=== PATIENT | male | born 1980 | race Caucasian/White ===

== ENCOUNTER 2020-03-16 10:50 | Inpatient (IN) | payer MEDICAID, OTHER ==
[2020-03-16] MEDS ORDERED: ACETAMINOPHEN TAB 500 MG TAB PO STA (11:25)
[2020-03-16] MEDS ORDERED: SODIUM CHLORIDE 0.9% 1,000 ML IV STA (11:25)
--- NOTE | 2020-03-16 11:28 | ED ---
General Adult HPI - General Chief complaint: Psychiatric Symptoms Stated complaint: headache 10 days Time Seen by Provider: 03/16/20 11:13 Source: patient Mode of arrival: ambulatory Limitations: no limitations - History of Present Illness Initial comments: Patient is a 39-year-old male presenting to the emergency Department with complaints of a headache that has been going on for the past 10 days. Patient states he is also having suicidal thoughts without a plan. He denies any homicidal thoughts. Patient states he does have history of depression but has never taken any medications for it. He has attempted suicide in the past, approximately 10-12 years ago. He does not currently have a plan. Patient states he does not normally have headaches and this headache will not go away. He has tried ibuprofen without improvement. He denies any fevers but he did arrive today febrile 100.6. He states he is a full-time job. He denies any chest pain, no shortness of breath. He denies any abdominal pain no nausea or vomiting no diarrhea. Patient did not take any Tylenol or Motrin today. He has no other pertinent past medical history, no abdominal surgeries. No neck pain, no trauma to the head. He denies being on blood thinners. He has no further complaints at this time. Upon arrival to the ER, patient is febrile 100.6, tachycardia at 116, rest of vitals are normal. - Related Data Home Medications Medication Instructions Recorded Confirmed No Known Home Medications 03/16/20 03/16/20 Allergies Allergy/AdvReac Type Severity Reaction Status Date / Time No Known Allergies Allergy Verified 03/16/20 16:53 Review of Systems ROS Statement: Those systems with pertinent positive or pertinent negative responses have been documented in the HPI. ROS Other: All systems not noted in ROS Statement are negative. Past Medical History Past Medical History: No Reported History Past Surgical History: No Surgical Hx Reported Past Psychological History: No Psychological Hx Reported Smoking Status: Current some day smoker Past Alcohol Use History: Occasional Past Drug Use History: None Reported General Exam - General Exam Comments Initial Comments: GENERAL: Patient appears disheveled , patient is nontoxic and in mild distress. HEAD: Atraumatic, normocephalic. EYES: Pupils equal round and reactive to light, extraocular movements intact, sclera anicteric, conjunctiva are normal. Eyelids were unremarkable. ENT: TMs normal, nares patent, oropharynx clear without exudates. Moist mucous membranes. NECK: Normal range of motion, supple without lymphadenopathy or JVD. Negative nuchal rigidity, negative Kernig's, negative Brudzinski's, negative jolt test. LUNGS: Unlabored respirations. Breath sounds clear to auscultation bilaterally and equal. No wheezes rales or rhonchi. HEART: Tachycardia rate and rhythm without murmurs, rubs or gallops. ABDOMEN: Soft, nontender, normoactive bowel sounds. No guarding, no rebound. No masses appreciated. : Deferred MUSCULOSKELETAL: Normal extremities with adequate strength and normal range of motion, no pitting or edema. No clubbing or cyanosis. NEUROLOGICAL: Patient is alert and oriented x 3. Motor and sensory are also intact. Cranial nerves II through XII grossly intact. Symmetrical smile. Normal speech, normal gait. PSYCH: Patient seems anxious, depressed. SKIN: Warm, Dry, normal turgor, no rashes or lesions noted. Limitations: no limitations Course Vital Signs 03/16/20 03/16/20 11:07 13:19 Temperature 100.6 F H 99.9 F H Pulse Rate 116 H 101 H Respiratory 22 16 Rate Blood Pressure 107/63 116/73 O2 Sat by Pulse 100 99 Oximetry - Reevaluation(s) Reevaluation #1: 03/16/20 13:46 Patient's labs are reviewed, normal white count, mildly elevated liver enzymes, Urine shows no evidence of infection, urine tox is positive for benzos, mariju stephani, no alcohol. Flu and Covid are all negative. CT of the brain, chest x-ray show no acute process. Patient was given fluids, Tylenol and Toradol for his headache. He's been resting currently. Patient was cleared for EPS evaluation. Awaiting their evaluation. EKG Findings - EKG Comments: EKG Findings:: Sinus tach, nonspecific T-wave abnormalities, no signs of acute process. Ventricular rate 101, UT interval 160, QT 320. Medical Decision Making - Medical Decision Making Patient is a 39-year-old male presenting for a headache for the past 10 days and is also suicidal. Patient denies having a plan that at this time. He did arrive febrile to 100.6, pulse is 116, rest of vitals were normal. His exam revealed no acute process, no acute neuro findings, no findings of acute meningitis. Labs show a normal white count, lactic acid was normal at 1.3, liver enzymes are slightly elevated, CRP is up at 29. Urine shows no evidence of infection, urine tox is positive for benzos and marijuana, serum alcohol is negative, flu, RSV and cold are all negative. EKG showed no acute process, chest x-ray and a brain CT also showed no acute process. Patient was given flu ids and Tylenol and pain control for his headache, he does report mild improvement in his symptoms. Patient was cleared for evaluation by EPS. Patient will be admitted to the psych unit. We will continue with Tylenol as needed for fever control. Case discussed with Dr. Pires. - Lab Data Result diagrams: 03/16/20 11:36 03/16/20 11:36 Lab Results 03/16/20 03/16/20 03/16/20 Range/Units 11:36 11:36 11:36 WBC 7.9 (3.8-10.6) k/uL RBC 4.21 L (4.30-5.90) m/uL Hgb 14.5 (13.0-17.5) gm/dL Hct 40.4 (39.0-53.0) % MCV 95.8 (80.0-100.0) fL MCH 34.4 (25.0-35.0) pg MCHC 35.9 (31.0-37.0) g/dL RDW 12.6 (11.5-15.5) % Plt Count 257 (150-450) k/uL MPV 7.2 Neutrophils % 77 % Lymphocytes % 15 % Monocytes % 5 % Eosinophils % 0 % Basophils % 1 % Neutrophils # 6.1 (1.3-7.7) k/uL Lymphocytes # 1.2 (1.0-4.8) k/uL Monocytes # 0.4 (0-1.0) k/uL Eosinophils # 0.0 (0-0.7) k/uL Basophils # 0.1 (0-0.2) k/uL PT 9.8 (9.0-12.0) sec INR 0.9 (<1.2) APTT 25.5 (22.0-30.0) sec Sodium 130 L (137-145) mmol/L Potassium 4.1 (3.5-5.1) mmol/L Chloride 97 L (98-107) mmol/L Carbon Dioxide 27 (22-30) mmol/L Anion Gap 6 mmol/L BUN 10 (9-20) mg/dL Creatinine 0.81 (0.66-1.25) mg/dL Est GFR (CKD-EPI)AfAm >90 (>60 ml/min/1.73 sqM) Est GFR (CKD-EPI)NonAf >90 (>60 ml/min/1.73 sqM) Glucose 108 H (74-99) mg/dL Plasma Lactic Acid Brennan (0.7-2.0) mmol/L Calcium 10.3 H (8.4-10.2) mg/dL Total Bilirubin 0.6 (0.2-1.3) mg/dL AST 137 H (17-59) U/L ALT 181 H (4-49) U/L Alkaline Phosphatase 178 H (38-126) U/L C-Reactive Protein 29.0 H (<10.0) mg/L Total Protein 6.8 (6.3-8.2) g/dL Albumin 3.9 (3.5-5.0) g/dL Urine Color Urine Appearance (Clear) Urine pH (5.0-8.0) Ur Specific [place] (1.001-1.035) Urine Protein (Negative) Urine Glucose (UA) (Negative) Urine Ketones (Negative) Urine Blood (Negative) Urine Nitrite (Negative) Urine Bilirubin (Negative) Urine Urobilinogen (<2.0) mg/dL Ur Leukocyte Esterase (Negative) Urine RBC (0-5) /hpf Urine WBC (0-5) /hpf Urine Mucus (None) /hpf Urine Opiates Screen (NotDetected) Ur Oxycodone Screen (NotDetected) Urine Methadone Screen (NotDetected) Ur Propoxyphene Screen (NotDetected) Ur Barbiturates Screen (NotDetected) U Tricyclic Antidepress (NotDetected) Ur Phencyclidine Scrn (NotDetected) Ur Amphetamines Screen (NotDetected) U Methamphetamines Scrn (NotDetected) U Benzodiazepines Scrn (NotDetected) Urine Cocaine Screen (NotDetected) U Marijuana (THC) Screen (NotDetected) Serum Alcohol <10 mg/dL Influenza Type A (PCR) (Not Detectd) Influenza Type B (PCR) (Not Detectd) RSV (PCR) (Not Detectd) SARS-CoV-2 (PCR) (Not Detectd) 03/16/20 03/16/20 03/16/20 Range/Units 11:36 11:36 11:36 WBC (3.8-10.6) k/uL RBC (4.30-5.90) m/uL Hgb (13.0-17.5) gm/dL Hct (39.0-53.0) % MCV (80.0-100.0) fL MCH (25.0-35.0) pg MCHC (31.0-37.0) g/dL RDW (11.5-15.5) % Plt Count (150-450) k/uL MPV Neutrophils % % Lymphocytes % % Monocytes % % Eosinophils % % Basophils % % Neutrophils # (1.3-7.7) k/uL Lymphocytes # (1.0-4.8) k/uL Monocytes # (0-1.0) k/uL Eosinophils # (0-0.7) k/uL Basophils # (0-0.2) k/uL PT (9.0-12.0) sec INR (<1.2) APTT (22.0-30.0) sec Sodium (137-145) mmol/L Potassium (3.5-5.1) mmol/L Chloride (98-107) mmol/L Carbon Dioxide (22-30) mmol/L Anion Gap mmol/L BUN (9-20) mg/dL Creatinine (0.66-1.25) mg/dL Est GFR (CKD-EPI)AfAm (>60 ml/min/1.73 sqM) Est GFR (CKD-EPI)NonAf (>60 ml/min/1.73 sqM) Glucose (74-99) mg/dL Plasma Lactic Acid Brennan 1.3 (0.7-2.0) mmol/L Calcium (8.4-10.2) mg/dL Total Bilirubin (0.2-1.3) mg/dL AST (17-59) U/L ALT (4-49) U/L Alkaline Phosphatase (38-126) U/L C-Reactive Protein (<10.0) mg/L Total Protein (6.3-8.2) g/dL Albumin (3.5-5.0) g/dL Urine Color Yellow Urine Appearance Clear (Clear) Urine pH 5.5 (5.0-8.0) Ur Specific [place] 1.019 (1.001-1.035) Urine Protein Trace H (Negative) Urine Glucose (UA) Negative (Negative) Urine Ketones Negative (Negative) Urine Blood Trace H (Negative) Urine Nitrite Negative (Negative) Urine Bilirubin Negative (Negative) Urine Urobilinogen <2.0 (<2.0) mg/dL Ur Leukocyte Esterase Negative (Negative) Urine RBC 2 (0-5) /hpf Urine WBC 1 (0-5) /hpf Urine Mucus Few H (None) /hpf Urine Opiates Screen Not Detected (NotDetected) Ur Oxycodone Screen Not Detected (NotDetected) Urine Methadone Screen Not Detected (NotDetected) Ur Propoxyphene Screen Not Detected (NotDetected) Ur Barbiturates Screen Not Detected (NotDetected) U Tricyclic Antidepress Not Detected (NotDetected) Ur Phencyclidine Scrn Not Detected (NotDetected) Ur Amphetamines Screen Not Detected (NotDetected) U Methamphetamines Scrn Not Detected (NotDetected) U Benzodiazepines Scrn Detected H (NotDetected) Urine Cocaine Screen Not Detected (NotDetected) U Marijuana (THC) Screen Detected H (NotDetected) Serum Alcohol mg/dL Influenza Type A (PCR) Not Detected (Not Detectd) Influenza Type B (PCR) Not Detected (Not Detectd) RSV (PCR) Not Detected (Not Detectd) SARS-CoV-2 (PCR) Not Detected (Not Detectd) Disposition Clinical Impression: Depression, Suicidal ideation, Headache, Viral illness Disposition: TRANSFER TO PSYCH HOSP/UNIT Condition: Stable Decision Date: 03/16/20 Decision Time: 15:46
[2020-03-16 12:12] LABS: Basophils # (A) 0.1 k/uL (0-0.2); Basophils % (A) 1 %; Eosinophils % (A) 0 %; HCT 40.4 % (39.0-53.0); HGB 14.5 gm/dL (13.0-17.5); Lymphocytes # (A) 1.2 k/uL (1.0-4.8); Lymphocytes % (A) 15 %; MCH 34.4 pg (25.0-35.0); MCHC 35.9 g/dL (31.0-37.0); MCV 95.8 fL (80.0-100.0); Mean Platelet Volume 7.2; Monocytes # (A) 0.4 k/uL (0-1.0); Monocytes % (A) 5 %; Neutrophils # (A) 6.1 k/uL (1.3-7.7); Neutrophils % (A) 77 %; Platelet Count 257 k/uL (150-450); RBC 4.21 m/uL (4.30-5.90); RDW 12.6 % (11.5-15.5); WBC 7.9 k/uL (3.8-10.6)
--- NOTE | 2020-03-16 12:12 | CT ---
EXAMINATION TYPE: CT brain wo con DATE OF EXAM: 03/16/2020 COMPARISON: None HISTORY: Headache for 10 days with fever today CT DLP: 1127.[address] of the brain was performed. The ventricles, basal cisterns and sulci overlying the cerebral convexities demonstrate a normal appe arance. There is no evidence for intracranial hemorrhage or sulcal effacement. No mass effects are seen. Osseous calvarium is intact. If symptoms persist consider MRI as clinically warranted. IMPRESSION: 1. No acute intracranial process is seen at this time.
[2020-03-16 12:21] LABS: Appearance,Urine Clear (Clear); Bilirubin,Urine Negative (Negative); Blood,Urine Trace (Negative); Color,Urine Yellow; Glucose,Urine (UA) Negative (Negative); Ketones,Urine Negative (Negative); Leukocyte Esterase,Urine Negative (Negative); Mucus,Urine Few /hpf; Nitrite,Urine Negative (Negative); PH, Urine 5.5 (5.0-8.0); Protein,Urine Trace (Negative); RBC,Urine 2 /hpf (0-5); Specific Gravity,Urine 1.019 (1.001-1.035); Urobilinogen,Urine <2.0 mg/dL (<2.0); WBC,Urine 1 /hpf (0-5)
[2020-03-16 12:27] LABS: ALT 181 U/L (4-49); AST 137 U/L (17-59); African American GFR (CKD) >90 (>60 ml/min/1.73 sqM); Albumin 3.9 g/dL (3.5-5.0); Alcohol <10 mg/dL; Alkaline Phosphatase 178 U/L (38-126); Anion Gap 6 mmol/L; Blood Urea Nitrogen 10 mg/dL (9-20); Calcium 10.3 mg/dL (8.4-10.2); Carbon Dioxide 27 mmol/L (22-30); Chloride 97 mmol/L (98-107); Glucose 108 mg/dL (74-99); Non-African American GFR(CKD) >90 (>60 ml/min/1.73 sqM); Potassium 4.1 mmol/L (3.5-5.1); Sodium 130 mmol/L (137-145); Total Bilirubin 0.6 mg/dL (0.2-1.3); Total Protein 6.8 g/dL (6.3-8.2)
--- NOTE | 2020-03-16 12:27 | XR ---
EXAMINATION TYPE: XR chest 2V DATE OF EXAM: 03/16/2020 COMPARISON: 01/07/2012 HISTORY: Chest pain TECHNIQUE: Frontal and lateral views of the chest are obtained. FINDINGS: There is no focal air space opacity. No evidence for pneumothorax. No pleural effusion. The cardiac silhouette size is within normal limits. The osseous structures are grossly intact. IMPRESSION: 1. No acute cardiopulmonary process.
[2020-03-16 12:31] LABS: Amphetamine Screen,Urine Not Detected (NotDetected); Barbiturate Screen,Urine Not Detected (NotDetected); Benzodiazepines Screen,Urine Detected (NotDetected); Cocaine Screen,Urine Not Detected (NotDetected); Methadone Screen, Urine Not Detected (NotDetected); Oxycodone Screen, Urine Not Detected (NotDetected); Phencyclidine Screen,Urine Not Detected (NotDetected); Tricyclic Antidepressant,Urine Not Detected (NotDetected); Urn Cannabinoid Scrn Detected (NotDetected)
[2020-03-16 12:43] LABS: INR 0.9 (<1.2); Prothrombin Time 9.8 sec (9.0-12.0)
[2020-03-16 12:44] LABS: Partial Thromboplastin Time 25.5 sec (22.0-30.0)
[2020-03-16 12:51] LABS: Opiate Screen,Urine Not Detected (NotDetected)
[2020-03-16] MEDS ORDERED: KETOROLAC 15 MG/ML 1 ML VIAL IVP STA (12:57)
[2020-03-16] MEDS ORDERED: METOCLOPRAMIDE 5 MG/ML 2 ML VIAL IVP STA (12:58)
[2020-03-16] MEDS ORDERED: SODIUM CHLORIDE 0.9% 500 ML 500 ML IV STA (15:18)
[2020-03-16] MEDS ORDERED: MAGNESIUM HYDROXIDE 2,400 MG/10 ML CUP PO PRN (16:11)
[2020-03-16] MEDS ORDERED: MAG HYDROX/AL HYDROX/SIMETH 30 ML CUP PO PRN (16:11)
[2020-03-16] MEDS ORDERED: haloperidoL 5 MG TAB PO PRN (16:17)
[2020-03-16] MEDS ORDERED: HALOPERIDOL LACTATE 5 MG/ML 1 ML VIAL IM PRN (16:17)
[2020-03-16] MEDS: NICOTINE 14MG/24HR PATCH TRANSDERM SCH (17:57)
[2020-03-16] MEDS ORDERED: INFLUENZA VACCINE (6 MOS+) 60 MCG/0.5 ML SYRINGE IM ONE (18:45)
[2020-03-16] MEDS ORDERED: PNEUMOCOCCAL VACC-PNEUMOVAX 23 25 MCG/0.5 ML VIAL IM ONE (18:46)
[2020-03-17] MEDS ORDERED: DEXAMETHASONE SOD PHOSPHATE 10 MG/ML 1 ML VIAL IM STA (00:01)
[2020-03-17] MEDS ORDERED: SUMAtriptan succinate 6 MG/0.5 ML VIAL SQ STA (00:01)
[2020-03-17] MEDS ORDERED: METOCLOPRAMIDE 5 MG/ML 2 ML VIAL IVP STA (00:01)
[2020-03-17] MEDS ORDERED: NAPROXEN 250 MG TAB PO STA (00:01)
[2020-03-17] MEDS ORDERED: diphenhydrAMINE 50 MG/ML 1 ML VIAL IVP PRN (00:01)
[2020-03-17] MEDS ORDERED: diphenhydrAMINE 50 MG/ML 1 ML VIAL IM PRN (00:30)
[2020-03-17] MEDS ORDERED: METOCLOPRAMIDE 5 MG/ML 2 ML VIAL IM PRN (00:30)
--- NOTE | 2020-03-17 00:42 | P.MDCNMH ---
History of Present Illness H&P Date: 03/17/20 Chief Complaint: medical evalaution , headache 39 year old male with no significant past medical history patient comes in to the ED, due to severe headache, not associated with focal neuro deficits, but claims to have nausea and photophobia, he claims that it has been going on for past 10 days, tylenol and motrin are not helping, in the ED he had CT done and was unremarkable for any acute pathology . in the ED he hwas given toradol with brief relief. he denies any history of similar episodes of headache he also reported depression and suicidal ideation , he had suicidal attempt 10 years ago, but otherwise denies being on any antidepressant or antipsychotics he otherwise denies any other medical concerns , denies any URI symptoms, GI symptoms, urinary changes Review of Systems Pertinent positives as noted in HPI. All other systems were reviewed and are negative Past Medical History Past Medical History: No Reported History Past Surgical History: No Surgical Hx Reported Past Psychological History: No Psychological Hx Reported Smoking Status: Current some day smoker Past Alcohol Use History: Occasional Past Drug Use History: None Reported - Past Family History family Family Medical History: No Reported History Medications and Allergies Home Medications Medication Instructions Recorded Confirmed Type No Known Home Medications 03/16/20 03/16/20 History Allergies Allergy/AdvReac Type Severity Reaction Status Date / Time No Known Allergies Allergy Verified 03/16/20 16:53 Physical Exam Vitals: Vital Signs Temp Pulse Pulse Resp BP BP Pulse Ox 03/16/20 18:00 98.4 F 03/16/20 16:54 98.7 F 113 H 16 116/66 99 03/16/20 16:30 98.8 F 03/16/20 13:19 99.9 F H 101 H 16 116/73 99 03/16/20 11:07 100.6 F H 116 H 22 107/63 100 Intake and Output 03/16/20 03/16/20 03/17/20 14:59 22:59 06:59 Other: Weight 79.379 kg 74.3 kg Constitutional: No acute distress, conversant, pleasant Eyes: Anicteric sclerae, moist conjunctiva, Pupils equal round reactive to light, photophobia ENMT: NC/AT Oropharynx clear, no erythema, or exudates Neck: Supple, FROM, no masses, or JVD No carotid bruits No thyromegaly Lungs: Clear to auscultation Clear to percussion Normal respiratory effort, no accessory muscle use Cardiovascular: Heart regular in rate and rhythm, No murmurs, gallops, or rubs No peripheral edema Abdominal: Soft Nontender, no guarding, rebound or rigidity Abdomen moving with respiration Normoactive bowel sounds No hepatomegaly, No splenomegaly No palpable mass No abdominal wall hernia noted Skin: Normal temperature, tone, texture, turgor No induration No subcutaneous nodules No rash, lesions No ulcers Extremities: No digital cyanosis No clubbing Pedal pulses intact and symmetrical Radial pulses intact and symmetrical No calf tenderness Psychiatric: Alert and oriented to person, place and time Appropriate affect fair judgement Neuro Muscles Strength 5/5 in all 4 extremities Sensation to light touch grossly present throughout Cranial nerves II-XII grossly intact No focal sensory deficits Lymphatics: no palpable cervical or supraclavicular , or inguinal lymph nodes Cranial Nerve Examination - Cranial Nerves Cranial Nerve II- Optic: Intact Cranial Nerve III- Oculomotor: Intact Cranial Nerve IV- Trochlear: Intact Cranial Nerve V- Trigeminal: Intact Cranial Nerve - Abducens: Intact Cranial Nerve VII- Facial: Intact Cranial Nerve VIII- Auditory: Intact Cranial Nerve IX- Glossopharyngeal: Intact Cranial Nerve X- Vagus: Intact Cranial Nerve XI- Accessory: Intact Cranial Nerve XII- Hypoglossal: Intact Results CBC & Chem 7: 03/16/20 11:36 03/16/20 11:36 Labs: Abnormal Lab Results - Last 24 Hours (Table) 03/16/20 03/16/20 03/16/20 Range/Units 11:36 11:36 11:36 RBC 4.21 L (4.30-5.90) m/uL Sodium 130 L (137-145) mmol/L Chloride 97 L (98-107) mmol/L Glucose 108 H (74-99) mg/dL Calcium 10.3 H (8.4-10.2) mg/dL AST 137 H (17-59) U/L ALT 181 H (4-49) U/L Alkaline Phosphatase 178 H (38-126) U/L C-Reactive Protein 29.0 H (<10.0) mg/L Urine Protein Trace H (Negative) Urine Blood Trace H (Negative) Urine Mucus Few H (None) /hpf U Benzodiazepines Scrn Detected H (NotDetected) U Marijuana (THC) Screen Detected H (NotDetected) Assessment and Plan Assessment: severe migraine headache trial of triptan, with naproxen reglan , and benadryl decadrone monitor for any neuro changes depression , suicidal ideation management per psych labs reviewed COVID negative elevated liver enzymes , denies any alcohol use , check liver US Thank you for allowing us to participate in the care of this patient. We will follow peripherally. Do not hesitate to contact us with questions. Someone can be reached from the [facility] hospitalist group at all hours of the day at [phone].
[2020-03-17] MEDS: NICOTINE 14MG/24HR PATCH TRANSDERM SCH (08:53)
[2020-03-17] MEDS ORDERED: PNEUMOCOCCAL VACC-PNEUMOVAX 23 25 MCG/0.5 ML VIAL IM ONE (09:00)
[2020-03-17] MEDS ORDERED: INFLUENZA VACCINE (6 MOS+) 60 MCG/0.5 ML SYRINGE IM ONE (09:00)
[2020-03-17] MEDS ORDERED: hydrOXYzine pamoate 25 MG CAP PO PRN (10:33)
[2020-03-17] MEDS ORDERED: AMITRIPTYLINE HCL 25 MG TAB PO ONE (10:37)
--- NOTE | 2020-03-17 10:40 | US ---
EXAMINATION TYPE: US liver DATE OF EXAM: 03/17/2020 COMPARISON: US & CT CLINICAL HISTORY: elevated liver enzymes and ALK phos. Elevated LFT's EXAM MEASUREMENTS: Liver Length: 18.0 cm Gallbladder Wall: 0.2 cm CBD: 0.3 cm Right Kidney: 11.4 x 4.9 x 6.1 cm Pancreas: wnl Liver: The appearance is normal. The liver length of 18.0 cm is enlarged. Normal less than 15.5 cm. Gallbladder: wnl Evidence for sonographic Bañuelos's sign: No CBD: wnl Right Kidney: wnl, lower pole gassed out IMPRESSION: 1. Mild hepatomegaly
[2020-03-17 10:59] LABS: Hemoglobin A1C 5.4 % (4.0-6.0)
[2020-03-17] MEDS ORDERED: AMITRIPTYLINE HCL 25 MG TAB PO SCH (11:00)
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
[2020-03-17] MEDS: IBUPROFEN 400 MG TAB PO PRN ×2 (14:10→19:07)
[2020-03-17] MEDS: LORazepam 1 MG TAB PO PRN (19:10)
[2020-03-17] MEDS: AMITRIPTYLINE HCL 25 MG TAB PO SCH (20:46)
[2020-03-17] MEDS ORDERED: AMITRIPTYLINE HCL 50 MG TAB PO SCH (21:00)
[2020-03-18] MEDS: LORazepam 1 MG TAB PO PRN (03:53)
[2020-03-18] MEDS: IBUPROFEN 400 MG TAB PO PRN (03:54)
[2020-03-18] MEDS ORDERED: NAPROXEN 250 MG TAB PO STA (05:16)
[2020-03-18] MEDS ORDERED: SUMAtriptan succinate 6 MG/0.5 ML VIAL SQ STA (05:16)
[2020-03-18 07:01] VITALS: RESP 16
[2020-03-18] MEDS: NICOTINE 14MG/24HR PATCH TRANSDERM SCH (08:11)
[2020-03-18] MEDS: AMITRIPTYLINE HCL 25 MG TAB PO SCH ×2 (08:13→21:02)
--- NOTE | 2020-03-18 09:37 | P.PN ---
Progress Note - Text Progress Note Date: 03/18/20 Interval History: Patient was seen in bed and was directable and agreeable to speak with publicity writer in his room with no one else present. Patient reports that he received Ativan this morning and that it was the most beneficial medication to help him with his headache. He is reporting that he has been taking his medications and feels drowsy as a side effect. He is not reporting any suicidal or homicidal ideation, intention, and/or plan today. He reported suicidal thoughts last night. He is not expressing any issues regarding psychosis. He reports no auditory or visual hallucinations. He denies any issues with sleep or appetite. Mental Status Exam: General Appearance: Patient appears to be stated age is alert, directable, and attempts to cooperate. Patient appears to have fair hygiene and grooming. Patient is of thin build and has long hair. He has multiple tattoos all over his body. Behavior: Patient is seated without any agitated behavior. Psychomotor activity is normal. Eye contact is intermittent. Speech: Patient's speech is fluent and nonpressured. Mood/Affect: Patient reports their mood is tired. Affect is somewhat irritable. Suicidality/Homicidality: Patient reports suicidal ideation last night. He denies any intention or plan. He denies any homicidal ideation/intention/plan. Perceptions: Patient denies any visual hallucinations and denies any auditory hallucinations Though content/process: There is no evidence of any delusional thought content and thought process is linear and goal-directed. Memory and concentration: AOX3, grossly intact for the purposes of this session. Can spell "WORLD" backwards Judgment and insight: Fair Assessment Depressive disorder, unspecified Generalized anxiety disorder Plan: -Patient continues to meet criteria for inpatient psychiatric admission for symptom stabilization and safety. Patient has signed adult voluntary form and medication consent and was placed in patient's chart. -Medications: Continue Elavil 25 mg by mouth twice a day for depression/headaches/anxiety Continue Vistaril 25 mg by mouth 4 times a day when necessary for anxiety -When necessary Ativan and Haldol for agitation/aggression. -NRT - nicotine patch -SW on board for discharge planning. Encouraged the patient to participate in milieu.
[2020-03-18] MEDS: ACETAMINOPHEN TAB 325 MG TAB PO PRN (21:05)
[2020-03-19 06:52] VITALS: BP 115/74; PULSE 77
[2020-03-19] MEDS: NICOTINE 14MG/24HR PATCH TRANSDERM SCH (08:16)
[2020-03-19] MEDS: AMITRIPTYLINE HCL 25 MG TAB PO SCH (08:17)
[2020-03-19] MEDS: ACETAMINOPHEN TAB 325 MG TAB PO PRN (08:17)
[2020-03-19] MEDS ORDERED: SUMAtriptan succinate 6 MG/0.5 ML VIAL SQ STA (09:03)
[2020-03-19] MEDS: IBUPROFEN 400 MG TAB PO PRN (09:38)
[2020-03-19 12:48] VITALS: TEMP 97.3
== END 2020-03-19 13:52 | disposition home or self-care (01) | DRG 881 ==
LOC: EC 10:50 → 3MHU 15:56
PROVIDERS: ADMIT Psychiatry & Neurology Psychiatry; ATTEND Psychiatry & Neurology Psychiatry
DX: F32.9 Major depressive disorder, single episode, unspecified (principal); R45.851 Suicidal ideations; F41.1 Generalized anxiety disorder; F17.210 Nicotine dependence, cigarettes, uncomplicated; G43.909 Migraine, unspecified, not intractable, without status migrainosus; F12.90 Cannabis use, unspecified, uncomplicated; Z20.828 Contact with and (suspected) exposure to other viral communicable diseases; Z91.5 Personal history of self-harm
CPT/HCPCS: 36415; 70450; 71046; 76705; 80053; 80061; 80306; 80320; 81001; 82075; 83036; 83605; 84443; 85025; 85610; 85730; 86140; 87040; 87636; 93005; 96361; 96374; 96375; 99285

== ENCOUNTER 2020-09-14 15:51 | Emergency (ER) | payer OTHER ==
[2020-09-14 15:55] VITALS: TEMP 98
--- NOTE | 2020-09-14 16:31 | ED ---
Psych HPI - General Chief Complaint: Psychiatric Symptoms Stated Complaint: EPS eval Time Seen by Provider: 09/14/20 16:11 Source: patient, RN notes reviewed Mode of arrival: ambulatory - History of Present Illness Initial Comments: Patient is a 40-year-old male that presents to emergency department one to get evaluated by psych for possible placement 3 W. until he can go to rehab on Monday. He notes that he is currently homeless and uses meth. He notes that he wanted to try getting admitted to help him using meth until he can go to rehab. He denied any other issues or complaints at this time. He was well- appearing well-hydrated in no apparent distress while sitting up in bed during exam and interview. He denied any chest pain first breath headache nausea vomiting diarrhea constipation fever fatigue chills. - Related Data Home Medications Medication Instructions Recorded Confirmed No Known Home Medications 09/14/20 09/14/20 Allergies Allergy/AdvReac Type Severity Reaction Status Date / Time No Known Allergies Allergy Verified 09/14/20 18:17 Review of Systems ROS Statement: Those systems with pertinent positive or pertinent negative responses have been documented in the HPI. ROS Other: All systems not noted in ROS Statement are negative. Past Medical History Past Medical History: No Reported History History of Any Multi-Drug Resistant Organisms: None Reported Past Surgical History: No Surgical Hx Reported Past Anesthesia/Blood Transfusion Reactions: No Reported Reaction Past Psychological History: Anxiety Smoking Status: Current every day smoker Past Drug Use History: Methamphetamine - Past Family History family Family Medical History: No Reported History General Exam Limitations: no limitations General appearance: alert, in no apparent distress Head exam: Present: atraumatic, normocephalic, normal inspection Eye exam: Present: normal appearance, PERRL, EOMI. Absent: scleral icterus, conjunctival injection, periorbital swelling Neck exam: Present: normal inspection. Absent: tenderness, meningismus, lymphad enopathy Respiratory exam: Present: normal lung sounds bilaterally. Absent: respiratory distress, wheezes, rales, rhonchi, stridor Cardiovascular Exam: Present: regular rate, normal rhythm, normal heart sounds. Absent: systolic murmur, diastolic murmur, rubs, gallop, clicks GI/Abdominal exam: Present: soft, normal bowel sounds. Absent: distended, tenderness, guarding, rebound, rigid Extremities exam: Present: normal inspection, full ROM, normal capillary refill. Absent: tenderness, pedal edema, joint swelling, calf tenderness Neurological exam: Present: alert, oriented X3 Psychiatric exam: Present: normal affect, normal mood. Absent: homicidal ideation, suicidal ideation Skin exam: Present: warm, dry, intact, normal color. Absent: rash Course Vital Signs 09/14/20 15:52 Temperature 98.0 F Pulse Rate 97 Respiratory 18 Rate Blood Pressure 125/82 O2 Sat by Pulse 96 Oximetry Medical Decision Making - Medical Decision Making 40-year-old male presenting for possible admission at the [facility] due to not wanting to use meth before rehab on Monday. Breath alcohol test and urine drug screen ordered. Case discussed with Dr. Pires, patient will be discharged with list of homeless shelters, is not acutely psychotic and/or has suicidal or homicidal ideations. EPS will be notified, he just Chester's patient is not suicidal homicidal or having acute psychosis episode they do not need to be evaluated. Resources given from shelters. Disposition Clinical Impression: Depression Disposition: HOME SELF-CARE Condition: Stable Instructions (If sedation given, give patient instructions): Depression (ED) Additional Instructions: Please return to the Emergency Department if symptoms worsen or any other concerns. Use resources given due to final a detention for tonight. Go to rehab on Monday. Is patient prescribed a controlled substance at d/c from ED?: No Referrals: None,Stated [Primary Care Provider] - 1-2 days Time of Disposition: 19:32
[2020-09-14 19:32] VITALS: RESP 16
[2020-09-14 19:53] VITALS: BP 118/94; PULSE 80
== END 2020-09-14 19:53 | disposition home or self-care (01) ==
LOC: EC 15:51
DX: F32.9 Major depressive disorder, single episode, unspecified (principal); F17.200 Nicotine dependence, unspecified, uncomplicated; Z59.0 Homelessness
CPT/HCPCS: 82075; 99283